=== PATIENT | female | born 1965 | race Hispanic/Latino ===

== ENCOUNTER 2022-01-21 10:10 | Emergency (ER) | payer OTHER ==
[~2022-01-21] VITALS: Ht 167.6 cm; Wt 86.2 kg
[2022-01-21] MEDS ORDERED: EYE IRRIGATION (OPTH) 120 ML BTL OP ONE (10:45)
[2022-01-21] MEDS ORDERED: TETRACAINE HCL 0.5% OPTH SOLN 4 ML BTL OP ONE (10:45)
[2022-01-21] MEDS ORDERED: FLUORESCEIN SOD(OPTH) 1 MG STRP OP ONE (10:45)
[2022-01-21] MEDS ORDERED: ERYTHROMYCIN (OPTH) 3.5 GM OINT OP ONE (11:15)
[2022-01-21] MEDS ORDERED: HYDROXYCHLOROQ100 MG (11:53)
[2022-01-21] MEDS ORDERED: AMITRIPTYLINE H50 MG PO (11:53)
[2022-01-21] MEDS ORDERED: EFFEXOR XR150 MG PO (11:53)
[2022-01-21] MEDS ORDERED: CALCIUM + VITA1 EACH (11:53)
[2022-01-21] MEDS ORDERED: MULTIVITAMINS1 EAC8 (11:53)
[2022-01-21] MEDS ORDERED: MIRALAX17 GM PO (11:53)
[2022-01-21] MEDS ORDERED: HYDROCORTISONE10 MG PO (11:53)
[2022-01-21 12:40] VITALS: BP 155/82
== END 2022-01-21 13:31 | disposition other institution (70) ==
LOC: ER 10:15
DX: T15.02XA Foreign body in cornea, left eye, initial encounter (principal); S05.52XA Penetrating wound with foreign body of left eyeball, initial encounter; W25.XXXA Contact with sharp glass, initial encounter; Y92.89 Other specified places as the place of occurrence of the external cause; Z20.822 Contact with and (suspected) exposure to COVID-19
CPT/HCPCS: 99284; U0002

== ENCOUNTER 2023-01-13 07:23 | Emergency (ER) | payer OTHER ==
[~2023-01-13] VITALS: Ht 165.1 cm; Wt 83.9 kg
[~2023-01-13 07:23] MED LIST: AMITRIPTYLINE H50 MG PO; CALCIUM + VITA1 EACH; EFFEXOR XR150 MG PO; HYDROCORTISONE10 MG PO; HYDROXYCHLOROQ100 MG PO; MIRALAX17 GM PO; MULTIVITAMINS1 EAC8 PO
[2023-01-13 08:01] LABS: BASOPHILS % 0.3 % (0.0-1.0); EOSINOPHILS # (AUTO) 0.4 (0.0-0.4); EOSINOPHILS % 6.9 % (0.0-6.0); HEMATOCRIT 41.8 % (34.2-44.1); HEMOGLOBIN 14.1 g/dL (12.0-16.0); LYMPHOCYTES # (AUTO) 0.8 (1.0-3.2); LYMPHOCYTES % 14.1 % (18.0-39.1); MEAN CORPUSCULAR HGB CONC 33.7 g/dL (31-35); MEAN CORPUSCULAR VOLUME 94.8 fL (81-99); MONOCYTES # (AUTO) 0.3 (0.2-0.8); MONOCYTES % 5.8 % (4.4-11.3); NEUTROPHILS # (AUTO) 4.2 (2.1-6.9); NEUTROPHILS % 72.4 % (38.7-80.0); PLATELET COUNT 192 x10e3/uL (140-360); RED BLOOD COUNT 4.41 x10e6/uL (3.6-5.1); RED CELL DISTRIBUTION WIDTH 14.9 % (11.7-14.4)
[2023-01-13 08:20] LABS: INR 0.81; PARTIAL THROMBOPLASTIN TIME 26.7 seconds (23.8-35.5); PROTHROMBIN TIME 11.7 seconds (11.9-14.5)
[2023-01-13 08:29] LABS: ALANINE AMINOTRANSFERASE 21 IU/L (0-55); ALBUMIN/GLOBULIN RATIO 1.3 (0.8-2.0); ALKALINE PHOSPHATASE 54 IU/L (40-150); ANION GAP 13.1 mmol/L (8-16); BLOOD UREA NITROGEN 20 mg/dL (7-26); BUN/CREATININE RATIO 25 (6-25); CALCIUM 9.2 mg/dL (8.4-10.2); CARBON DIOXIDE 30 mmol/L (22-29); CHLORIDE 101 mmol/L (98-107); CREATININE, SERUM 0.79 mg/dL (0.57-1.11); GLUCOSE 106 mg/dL (74-118); MAGNESIUM 2.1 MG/DL (1.3-2.1); POTASSIUM 5.1 mmol/L (3.5-5.1); SODIUM 139 mmol/L (136-145)
[2023-01-13] MEDS ORDERED: AZITHROMYCIN250 MG PO (09:50)
[2023-01-13 09:56] VITALS: O2SAT 100
== END 2023-01-13 10:04 | disposition home or self-care (01) ==
LOC: ER 07:27
DX: R05.9 Cough, unspecified (principal); J40 Bronchitis, not specified as acute or chronic; M32.9 Systemic lupus erythematosus, unspecified; Z20.822 Contact with and (suspected) exposure to COVID-19; Z85.3 Personal history of malignant neoplasm of breast
CPT/HCPCS: 36415; 71045; 80053; 83735; 83880; 84484; 85025; 85379; 85610; 85730; 93005; 99284; U0002

== ENCOUNTER 2024-09-23 18:23 | Emergency (ER) | payer OTHER ==
[~2024-09-23] VITALS: Ht 165.1 cm; Wt 83.9 kg
[~2024-09-23 18:23] MED LIST changes: +AZITHROMYCIN250 MG PO
[2024-09-23 18:25] VITALS: PULSE 83; RESP 15; TEMP 97.8
[2024-09-23] MEDS: KETOROLAC TROMETHAMINE 60 MG/2 ML VIAL IM STA (20:33)
[2024-09-23] MEDS ORDERED: PREDNISONE20 MG PO (20:35)
[2024-09-23] MEDS ORDERED: KETOROLAC TROME10 MG PO (20:35)
[2024-09-23 21:03] LABS: CORONAVIRUS COVID-19 AG NEGATIVE (NEGATIVE); INFLUENZA A AG NEGATIVE (NEGATIVE); INFLUENZA B AG NEGATIVE (NEGATIVE)
[2024-09-23 21:06] VITALS: BP 131/82; O2SAT 99
== END 2024-09-23 21:09 | disposition home or self-care (01) ==
LOC: ER 18:26
DX: M79.661 Pain in right lower leg (principal); M32.9 Systemic lupus erythematosus, unspecified; Z11.52 Encounter for screening for COVID-19; Z85.3 Personal history of malignant neoplasm of breast
CPT/HCPCS: 73590; 87428; 93971; 99283; J1885